=== PATIENT | female | born 1990 | race Caucasian/White ===

== ENCOUNTER 2016-11-06 04:32 | Emergency (ER) | payer OTHER | END 2016-11-06 06:15 | disposition home or self-care (01) | LOC: D.ER 04:32 | DX: M54.5 Low back pain (principal) ==

== ENCOUNTER → 2019-09-22 15:59 | Outpatient (CLI) | payer OTHER | END | disposition home or self-care (01) | LOC: D.RAD 15:59 | PROVIDERS: ATTEND Nurse Practitioner Family | DX: R05 Cough (principal) ==